=== PATIENT | male | born 1995 | race Two or more races ===

== ENCOUNTER 2018-06-19 08:28 | Emergency (ER) | payer SELFPAY ==
[~2018-06-19] VITALS: Ht 165.1 cm; Wt 53.0 kg
[2018-06-19] MEDS ORDERED: MAALOX/HYOSCYAMINE/LIDOCAINE 45 ML BTL PO ONE (09:00)
[2018-06-19] MEDS ORDERED: FAMOTIDINE 20 MG TABLET PO ONE (09:00)
[2018-06-19] MEDS ORDERED: ONDANSETRON ODT 4 MG PO ONE (09:00)
[2018-06-19 09:22] LABS: BASOPHILS # (AUTO) 0.04 x10^3/uL (0-0.1); BASOPHILS % (AUTO) 1 % (0-1); EOSINOPHILS # (AUTO) 0.06 x10^3/uL (0-0.4); EOSINOPHILS % (AUTO) 1 % (1-7); LYMPHOCYTES # (AUTO) 1.21 x10^3/uL (1-3.4); LYMPHOCYTES % (AUTO) 20 % (22-44); MD NO; MEAN CORPUSCULAR HEMOGLOBIN 31.2 pg (27.5-34.5); MEAN CORPUSCULAR HGB CONC 33.9 g/dL (33.2-36.2); MONOCYTES # (AUTO) 0.26 x10^3/uL (0.2-0.8); MONOCYTES % (AUTO) 4 % (2-9); NEUTROPHILS % (AUTO) 75 % (42-75); PLATELET COUNT 155 x10^3/uL (130-400); RED BLOOD COUNT 5.18 x10^6/uL (4.38-5.82); RED CELL DISTRIBUTION WIDTH 13.2 % (9.4-14.8)
[2018-06-19 09:24] LABS: MICROSCOPIC NOT IND
[2018-06-19 09:30] LABS: CULTURE INDICATED? NO
[2018-06-19] MEDS ORDERED: FAMOTIDINE 20 MG TABLET ONE (09:30)
[2018-06-19] MEDS ORDERED: ONDANSETRON ODT 4 MG ONE (09:31)
[2018-06-19] MEDS ORDERED: MAALOX/HYOSCYAMINE/LIDOCAINE 45 ML BTL ONE (09:31)
[2018-06-19 09:36] LABS: ALANINE AMINOTRANSFERASE 29 U/L (12-78); ALBUMIN 4.1 g/dL (3.4-5.0); ANION GAP 5 mmol/L (5-15); CHLORIDE 106 mmol/L (98-107); CREATININE 0.85 mg/dL (0.7-1.3)
[2018-06-19 09:38] LABS: ALKALINE PHOSPHATASE 110 U/L (45-117); BILIRUBIN,TOTAL 0.4 mg/dL (0.2-1.0); TOTAL PROTEIN 7.8 g/dL (6.4-8.2)
[2018-06-19 09:55] VITALS: BP 116/64
== END 2018-06-19 09:59 | disposition home or self-care (01) ==
LOC: ED 09:53
DX: K29.00 Acute gastritis without bleeding (principal); F17.200 Nicotine dependence, unspecified, uncomplicated
CPT/HCPCS: 36415; 80053; 81003; 83690; 85025; 99284; Q0162

== ENCOUNTER 2020-11-23 13:43 | Emergency (ER) | payer SELFPAY ==
[~2020-11-23] VITALS: Ht 160 cm; Wt 57.2 kg
[2020-11-23 13:46] VITALS: BP 117/71
[2020-11-23] MEDS ORDERED: KETOROLAC 30 MG/1 ML IM ONE (14:00)
[2020-11-23] MEDS ORDERED: CEFTRIAXONE 1,000 MG IM ONE (14:00)
[2020-11-23] MEDS ORDERED: ONDANSETRON ODT 4 MG PO ONE (14:00)
[2020-11-23] MEDS ORDERED: KETOROLAC 60 MG/2 ML ONE (14:07)
[2020-11-23] MEDS ORDERED: CEFTRIAXONE 1,000 MG ONE (14:07)
[2020-11-23] MEDS ORDERED: ONDANSETRON ODT 4 MG ONE (14:07)
== END 2020-11-23 14:57 | disposition home or self-care (01) ==
LOC: ED 14:36
DX: R11.2 Nausea with vomiting, unspecified (principal)
CPT/HCPCS: 96372; 99284; J0696; J1885; Q0162